=== PATIENT | female | born 1995 | race Caucasian/White ===

== ENCOUNTER 2024-07-22 19:25 | Emergency (ER) | payer SELFPAY ==
[2024-07-22 19:31] VITALS: BP 160/90; PULSE 100; RESP 16; TEMP 36.9; O2SAT 98
--- NOTE | 2024-07-22 20:08 | ED.GENADUL_ITS ---
Discharge Plan Disposition Patient Disposition: Home Discharge Details Clinical Impression: Dental infection, Elevated blood pressure reading Primary Care Provider: Unknown,Unknown ED Provider: Meme Hickey Home Meds and New Rx's Prescriptions: No Action No Known Home Meds Discharge Instructions Instructions: Dental Pain ED Additional Instructions: Please follow-up with your dentist later this week, you can call to schedule earlier appointment if available. Follow-up with your primary care provider for discussion of your elevated blood pressure and anxiety. Continue taking your antibiotics for the full course as prescribed. You may continue to use Tylenol ibuprofen as needed for discomfort. Cool compresses on your lower jaw may also be helpful for discomfort. Be sure to get plenty of rest and drink lots of fluids. Eat regular meals. I recommend looking into anxiety reduction techniques such as meditation. [employer] timer is a good and free deedee that has many options. Return to emergency care if you develop worsening swelling on your face/neck, difficulty opening mouth, fever/chills, or if you are very worried and need to be rechecked again immediately. HPI General Date/Time Provider Initiated Documentation: 07/22/24 19:26 . HPI Narrative: Kamila is a 29 year old female who presents to the emergency department today for evaluation of dental pain and feeling unwell. She reports that for the last few weeks she has had swelling to the left lower part of her jaw attributed to broken teeth. She was seen in the emergency department 5 days ago, given Augmentin which she has been taking with good improvement of swelling and pain. She has an appointment scheduled with her dentist in 4 days for evaluation/definitive management. She reports that despite taking antibiotics she does not feel very well, thinks is from fighting the infection. Had an episode of blurred vision while she was looking at her computer screen today, so came to the emergency department to get checked out at the urging of her coworkers. She denies fever/chills, vision changes, unusual headaches, difficulty opening her mouth, nausea/vomiting, change in p.o. intake, change in bowel or bladder function. She reports that she has recently had elevated blood pressure, says this was noted by her PCP. Denies significant past medical history or immunocompromise. She has a PCP in [facility]. Physical exam reassuring. Mild swelling to the left lower jaw at the canine/premolar gumline with a firm nodule. Moist mucous membranes, Clear voice. Mild anterior cervical lymphadenopathy. Full painless range of motion of neck. Patient is alert and oriented, no acute distress, but does appear quite anxious. I independently interpreted the following tests: CBC and BMP both reassuring. History and presentation consistent with dental caries/abscess. No red flags concerning for deep space infection or Mike's angina. Patient does not meet SIRS/sepsis criteria. Patient was noted to have elevated blood pressure, recommend follow-up with PCP for management of anxiety and blood pressure as well. Reviewed discharge instructions with patient, including symptomatic management and red flags indicating need for return to emergency care Related Data Home Medications ?Medication ?Instructions ?Recorded ?Confirmed Unknown [No Known Home Meds] 07/22/24 07/22/24 Allergies Allergy/AdvReac Type Severity Reaction Status Date / Time No Known Allergies Allergy Unverified 07/22/24 19:37 General Stated Complaint: DentalOral SANGITA: 4 Review of Systems Narrative: see HPI Exam Const General: cooperative, healthy appearing, comfortable, no acute distress, well developed and well groomed Nutritional Appearance: average body habitus and well nourished Orientation: alert and oriented x3 HENMT Head: normal to inspection Ears: hearing grossly normal bilaterally General nose exam: external nose normal Face and sinus: normal facial exam Mouth: lip normal, tongue normal, salivary ducts normal, oropharynx normal, moist mucous membranes, no trismus and No restricted motion Teeth and gingiva: abnormal tooth or associated gingiva (swelling at gumline L lower premolars) and poor dentition Throat: posterior oropharynx normal, tonsils normal and uvula midline Neck Neck: normal visual inspection, full ROM, lymphadenopathy (mild anterior cervical LAD) and nontender Resp Effort & Inspection: normal respiratory effort and able to speak in complete sentences Skin General skin exam: no rashes or lesions noted Trauma: no lacerations or abrasions Neuro General: patient alert, patient oriented x3, tone normal and moves all ex tremities Cranial Nerves: facial strength normal Course Vital Signs Vital signs: Vital Signs Temperature 36.9 C 07/22/24 19:31 Pulse 100 H 07/22/24 19:31 Respiratory Rate 16 07/22/24 19:31 Blood Pressure 160/90 H 07/22/24 19:31 Pulse Oximetry 98 07/22/24 19:31 Temperature 36.9 C 07/22/24 19:31 Temperature Source Oral 07/22/24 19:31 Pulse 100 H 07/22/24 19:31 Respiratory Rate 16 07/22/24 19:31 Blood Pressure 160/90 H 07/22/24 19:31 Blood Pressure Position Sitting 07/22/24 19:31 Pulse Oximetry 98 07/22/24 19:31 Oxygen Delivery Method Room Air 07/22/24 19:31 Oxygen Flow Rate 0 07/22/24 19:31 Medical Decision Making Quality:SDOH Health Related Social Needs: No Data to Display PFSH All Active Problems (Updated 07/22/24 @ 20:58 by Meme Brown) Elevated blood pressure reading (Acute) Dental infection (Acute) Social History Smoking risk assessment performed?: No
[2024-07-22 20:24] LABS: Abs Immature Grans 0.01 10^3/uL (0.0-0.06); Absolute Basophil Count 0.03 10^3/uL (0.0-0.2); Absolute Eosinophil Count 0.09 10^3/uL (0.0-0.7); Absolute Lymphocyte Count 1.29 10^3/uL (1.2-3.4); Absolute Monocyte Count 0.37 10^3/uL (0.1-0.8); Absolute Neutrophil Count 4.27 10^3/uL (1.2-6.7); Basophils % 0.5 %; Eosinophils % 1.5 %; HCT 40.7 % (36.0-46.0); HGB 13.4 g/dL (11.2-15.7); Immature Grans % 0.2 %; Lymphocytes % 21.3 %; MCH 29.1 pg (27.0-33.0); MCHC 32.9 % (32.0-36.0); MCV 89 fL (80-95); MPV 9.4 fL (8.0-11.0); Monocytes % 6.1 %; Neutrophils % 70.4 %; Platelet Count 270 10^3/uL (130-400); RDW 11.9 % (11.7-14.6); RDW-SD 37.9 fL; WBC 6.06 10^3/uL (4.4-10.8)
[2024-07-22 20:35] LABS: BUN 13 mg/dL (7-18); CREATININE 0.8 mg/dL (0.55-1.02); Calcium 9.4 mg/dL (8.5-10.1); Chloride 101 mmol/L (98-107); Estimated GFR 102.86 (mL/min/1.73m2); Glucose 92 mg/dL (74-106); Potassium 3.8 mmol/L (3.5-5.1); Sodium 138 mmol/L (136-145)
[2024-07-22 21:02] VITALS: BP 150/84; PULSE 80; RESP 16; O2SAT 98
== END 2024-07-22 21:03 | disposition home or self-care (01) ==
PROVIDERS: Emergency Provider Nurse Practitioner Family
DX: R68.84 Jaw pain (principal); K04.7 Periapical abscess without sinus; R03.0 Elevated blood-pressure reading, without diagnosis of hypertension
CPT/HCPCS: 99283; 99282; 80048; 85025

== ENCOUNTER 2025-01-26 15:08 | Emergency (ER) | payer MEDICAID, SELFPAY ==
[2025-01-26 15:11] VITALS: BP 142/102; PULSE 98; RESP 16; TEMP 36.6; O2SAT 97
[2025-01-26 15:21] VITALS: BP 130/86
--- NOTE | 2025-01-26 15:28 | W.ED.GENAD ---
Discharge Plan Disposition Patient Disposition: Home Condition: Stable Discharge Details Clinical Impression: Vaginal bleeding Primary Care Provider: Unknown,Unknown ED Provider: Alessio Milton Home Meds and New Rx's Prescriptions: Continued desogestrel-ethinyl estradiol [Apri] 0.15-0.03 mg tablet 1 tab PO DAILY Discharge Instructions Additional Instructions: Your test and your blood work was negative. Your blood work did not show any concerning findings. Follow-up with either your primary care provider or [facility]SE [facility]PER[facility] if not improving this week. If you feel significantly more ill or have severe worsening pain return to the emergency department for reevaluation. Stand Alone Forms: Portal Information, Work Release HPI General Mode of arrival: ambulatory. Date/Time Provider Initiated Documentation: 01/26/25 15:09. Limitations to Documentation: no limitations. Information obtained by: patient. History of Present Illness 29 year old F presents to the emergency department with the chief complaint of vaginal bleeding, positive home tests, described as mild, Patient started experiencing this day(s) (1) and it has been constant. No relieving factors improve symptom(s), No exacerbating factors reported . Patient notes denies chest pain, nausea/vomiting and shortness of breath. 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: 3 Review of Systems All systems reviewed & are unremarkable except as noted in HPI and below Constitutional Constitutional: Denies chills, Denies fever(s) and Denies weakness Cardiovascular Cardiovascular: Denies chest pain and Denies dyspnea Respiratory Respiratory: Denies cough and Denies dyspnea Gastrointestinal Gastrointestinal: Denies nausea and Denies vomiting Genitourinary Genitourinary: Reports abnormal vaginal bleeding Neurologic Neurologic: Denies weakness Psychiatric Psychiatric: Denies depression Exam Const General: no acute distress Orientation: alert HENOR Head: normal to inspection Ears: external ears normal General nose exam: external nose normal Mouth: moist mucous membranes Eyes General: appearance normal, both eyes and all related structures Neck Neck: normal visual inspection Resp Effort & Inspection: normal respiratory effort and able to speak in complete sentences Cardio Rate: regular rate GI Palpation: soft and tender Skin General skin exam: no rashes or lesions noted Neuro General: patient alert and patient oriented x3 Extrem General: normal to inspection Psych Mental Status: mental status grossly normal Course Vital Signs Vital signs: Vital Signs Temperature 36.6 C 01/26/25 15:11 Pulse 98 H 01/26/25 15:11 Respiratory Rate 16 01/26/25 15:11 Blood Pressure 142/102 H 01/26/25 15:11 Pulse Oximetry 97 01/26/25 15:11 Temperature 36.6 C 01/26/25 15:11 Temperature Source Oral 01/26/25 15:11 Pulse 98 H 01/26/25 15:11 Respiratory Rate 16 01/26/25 15:11 Blood Pressure 130/86 01/26/25 15:21 Blood Pressure Mean 100 01/26/25 15:21 Blood Pressure Position Sitting 01/26/25 15:11 Pulse Oximetry 97 01/26/25 15:11 Oxygen Delivery Method Room Air 01/26/25 15:11 Oxygen Flow Rate 0 01/26/25 15:11 Medical Decision Making 29-year-old female G4 who states her 3 prior pregnancies and a miscarriage and comes in with vaginal spotting. She says that her period was 1.5 weeks late and she checked a test which was positive. She denies any fevers or severe abdominal pain but states she does mild right pelvic discomfort. She is well-appearing and hemodynamically stable on arrival. Given her test that are positive for spotting will check CBC, CMP, UA and hCG quant checking screen. Will see if there is a mechanical system technician available to come in to evaluate for possible ectopic . Patient has a negative serum hCG and no mechanical system technician available given that is negative I do not feel she requires transfer for an ultrasound. She is stable. Has minimal mild right sided pelvic tenderness. Discussed doing a CT and after discussing with her and her pain being mild she declines to have this done and will return if she has worsening pain which I feel is reasonable. 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 Differential Diagnosis Differential Diagnosis: threatened , ectopic PFSH All Active Problems (Updated 01/26/25 @ 16:46 by Alessio Milton MD) Vaginal bleeding (Acute) Social History Smoking/Tobacco Use Status: Current every day Tobacco Type: e-cigarettes Smoking risk assessment performed?: Yes Substance use type: does not use
[2025-01-26 15:57] LABS: Glucose Negative (Negative)
[2025-01-26 16:05] LABS: Abs Immature Grans 0.01 10^3/uL (0.0-0.06); HCT 41.7 % (36.0-46.0); HGB 13.8 g/dL (11.2-15.7); Immature Grans % 0.2 %; MCH 29.1 pg (27.0-33.0); MCHC 33.1 % (32.0-36.0); MCV 88 fL (80-95); MPV 10.0 fL (8.0-11.0); Platelet Count 264 10^3/uL (130-400); RBC 4.75 10^6/uL (3.93-5.22); RDW 12.1 % (11.7-14.6); RDW-SD 39.1 fL; WBC 6.31 10^3/uL (4.4-10.8)
[2025-01-26 16:22] LABS: ALT 23 U/L (14-59); AST 15 U/L (15-37); Albumin 4.4 g/dL (3.4-5.0); Alkaline Phosphatase 79 U/L (46-116); Anion Gap 10.6 mmol/L (3-11); BUN 10 mg/dL (7-18); Bilirubin, Total 0.6 mg/dL (0.2-1.0); CO2 27.4 mmol/L (21.0-32.0); Calcium 9.1 mg/dL (8.5-10.1); Chloride 100 mmol/L (98-107); Glucose 92 mg/dL (74-106); Potassium 3.8 mmol/L (3.5-5.1); Sodium 138 mmol/L (136-145); Total Protein 8.5 g/dL (6.4-8.2)
[2025-01-26 16:35] LABS: HCG Quant, Pregnancy < 1 mIU/mL (1-3)
== END 2025-01-26 17:21 | disposition home or self-care (01) ==
PROVIDERS: Emergency Provider Emergency Medicine
DX: N93.9 Abnormal uterine and vaginal bleeding, unspecified (principal)
CPT/HCPCS: 99283 ×2; 36415; 81025; 80053; 86850; 86900; 86901; 81003; 84702; 85025